=== PATIENT | female | born 1995 | race Caucasian/White ===

== ENCOUNTER 2018-10-07 14:59 | Emergency (ER) | payer OTHER ==
--- NOTE | 2018-10-07 15:10 | EDPHY ---
H & P Stated Complaint: accidentally hit in l druze at work friday/blankenship/nausea light sensitive Source: Patient Exam Limitations: No limitations - Personal History LMP (Females 10-55): IUD In Place Current Tetanus Diphtheria and Acellular Pertussis (TDAP): Yes - Medical/Surgical History Hx Asthma: No Hx Chronic Respiratory Disease: No Hx Diabetes: No Hx Cardiac Disease: No Hx Renal Disease: No Hx Cirrhosis: No Hx Alcoholism: No Hx HIV/AIDS: No Hx Splenectomy or Spleen Trauma: No Other PMH: concussions - Social History Smoking Status: Never smoked Time Seen by Provider: 10/07/18 15:08 HPI/ROS: HPI: This is a 23-year-old female who presents with Chief Complaint: accidentally hit in l druze at work Friday/blankenship/nausea light sensitive Location: Head Quality: Injury Duration: 2 days ago Signs and Symptoms: no fever, + nausea, no vomiting, + photophobia, no noise sensitivity, no neck stiffness, no ear pain, no tinnitus, no nasal congestion, no sinus pressure, no weakness, no radiation, no aura, no dizziness, no amnesia Timing: Acute, constant Severity: Moderate Context: Patient has a history of concussions x7 and migraine headaches presents with 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 She reports that she felt immediate, constant, moderate pain and "saw black spots for approximately 3 sec." Patient reports that since that time she has had at headache that is generalized and aching in nature accompanied by photophobia, nausea and dizziness. Denies LOC/neck pain/vomiting/amnesia. Modifying Factors: She has taken [id number] medications with transient relief Comment: ROS: A comprehensive 10 system review of systems is otherwise negative aside from elements mentioned in the history of present illness. MEDICAL/SURGICAL/SOCIAL HISTORY: Medical history: Asthma, attention deficit hyperactivity disorder, concussions x7. IUD in place. Surgical history: Denies Social history: Never smoked. Employed. Family history noncontributory. CONSTITUTIONAL: Tearful, well-developed, well-nourished young adult white female, awake and alert, no obvious distress HEENT: Atraumatic and normocephalic. No TM perforation. TM clear bilaterally. NECK: supple, no midline tenderness, flexion 45 degrees, extension 45 degrees, right and left lateral flexion 45 degrees. No meningismus. Cardiovascular: Normal S1/S2, regular rate, regular rhythm, without murmur rub or gallop. PULMONARY/CHEST: Symmetrical and nontender. Clear to auscultation bilaterally. Good air movement. No accessory muscle usage. ABDOMEN: Soft, nondistended, nontender. EXTREMITIES: 2/2 pulses, strength 5/5,no deformities, no clubbing, no cyanosis or edema. NEUROLOGICAL: no focal neuro deficits. GCS 15. Light touch sensation intact. Cranial nerves 2-12 grossly intact. Normal olbfdd-gu-[id number] test. Normal heel-to -johnson test. Ambulatory without any deficits. SKIN: Warm and dry, no erythema. no rash. Good capillary refill. (Rhona Kaur) Constitutional: Initial Vital Signs Temperature (C) 36.4 C 10/07/18 15:04 Heart Rate 62 10/07/18 15:04 Respiratory Rate 18 10/07/18 15:04 Blood Pressure 125/94 H 10/07/18 15:04 O2 Sat (%) 99 10/07/18 15:04 O2 Delivery Mode Room Air Allergies/Adverse Reactions: No Known Allergies Allergy (Unverified 10/07/18 15:02) Home Medications: Medication Instructions Recorded Acyclovir 10/07/18 Adderall 10 MG (*) 10/07/18 FLUoxetine 10/07/18 Promethazine HCl 25 mg PO Q6 PRN #10 tablet 10/07/18 Qvar 40 Redihaler (*) 10/07/18 Ventolin Hfa 10/07/18 oxyCODONE/APAP 5/325 [Percocet 1 - 2 tab PO Q4H PRN #10 tab 10/07/18 5/325 (*)] Medical Decision Making ED Course/Re-evaluation: Vital signs reviewed and stable upon arrival. Based on NEXUS protocol, head CT imaging not indicated Patient appears to have a concussion. Given [place] and promethazine with adequate relief Placed on concussion precautions and work note provided with referral to Dr. Molina in the concussion Clinic. This patient was seen under the supervision of my secondary supervising physician. I evaluated care for this patient with my attending. Discussed this patient with Dr. Francis. (Rhona Kaur) I did not see this patient while she was in the emergency department. However her care was discussed with the PA while the patient was in the department. I agree with treatment plan and management (TitoRamon Shah) Differential Diagnosis: Head injury including but not limited to concussion, skull fracture, intraparenchymal contusion, subarachnoid, subdural and epidural hematoma. (Rhona Kaur) - Data Points Medications Given: Discontinued Medications Hydrocodone Bitart/Acetaminophen ([place] 5/325) 1 tab PO EDNOW ONE Stop: 10/07/18 15:16 Last Admin: 10/07/18 15:25 Dose: 1 tab Promethazine HCl (Phenergan) 25 mg PO EDNOW ONE Stop: 10/07/18 15:16 Last Admin: 10/07/18 15:25 Dose: 25 mg Departure - Departure Disposition: Home, Routine, Self-Care Clinical Impression: Concussion without loss of consciousness, initial encounter Condition: Good Instructions: Concussion (ED) Additional Instructions: You sustained a closed head injury and mild concussion and it is recommended that you observe concussion precautions. Please do not participate in any contact sports or moderate and strenuous activity until all symptoms have resolved or cleared by PCP/Concussion Clinic. Take Tylenol 650 mg every 4 hours and/or Ibuprofen 600 mg every 8 hours with food as needed for pain/headache. Take promethazine every 4-6 hours as needed for nausea, vomiting. Take Percocet 1 tab every 4-6 hours as needed for severe/breakthrough pain. Consume a minimum of 8-10 glasses of water or electrolyte fluid replacement drinks that include Gatorade, Powerade, Pedialyte. If symptoms last longer than 1 week, please follow-up with Dr. Molina in the concussion Clinic. Return to the ER immediately if you have progressive headaches, neurologic deficits, gait abnormality, visual disturbance, slurred speech, or any other symptom that concerns you. Referrals: Kasey Sousa MD [Primary Care Provider] - As per Instructions Lala Molina MD [Medical Doctor] - 2-3 days, call for appt. Stand Alone Forms: Work Excuse Prescriptions: oxyCODONE/APAP 5/325 [Percocet 5/325 (*)] 1 - 2 tab PO Q4H PRN #10 tab PRN Reason: Pain, Severe Promethazine HCl 25 mg PO Q6 PRN #10 tablet PRN Reason: Nausea/Vomiting, Use 1st
[2018-10-07] MEDS ORDERED: PROMETHAZINE HCL 25 MG TAB PO ONE (15:15)
[2018-10-07] MEDS ORDERED: HYDROCODONE/APAP 5/325 TAB PO ONE (15:15)
[2018-10-07 17:11] VITALS: BP 104/53
== END 2018-10-07 17:10 | disposition home or self-care (01) ==
DX: S06.0X0A Concussion without loss of consciousness, initial encounter (principal); S09.90XA Unspecified injury of head, initial encounter; Y99.0 Civilian activity done for income or pay